=== PATIENT | female | born 1970 | race Caucasian/White ===

== ENCOUNTER 2023-01-07 10:37 | Emergency (ER) | payer MEDICAID, OTHER ==
[~2023-01-07] VITALS: Ht 162.6 cm; Wt 64.0 kg
[2023-01-07 10:38] VITALS: BP 120/90; RESP 20; O2SAT 99
[2023-01-07 11:42] VITALS: PULSE 75
== END 2023-01-07 12:55 | disposition left against medical advice (07) ==
LOC: EDBD 10:37 → ER 10:37
DX: K08.89 Other specified disorders of teeth and supporting structures (principal); M79.632 Pain in left forearm; F19.10 Other psychoactive substance abuse, uncomplicated; Z53.21 Procedure and treatment not carried out due to patient leaving prior to being seen by health care provider
CPT/HCPCS: 93005; 99281; J7030

== ENCOUNTER 2023-10-31 08:48 | Emergency (ER) | payer MEDICAID, OTHER ==
[~2023-10-31] VITALS: Ht 167.6 cm; Wt 68.1 kg
[2023-10-31] MEDS: hydrALAZINE HCL 20 MG/ML VL IV ONE ×2 (10:00→14:26)
[2023-10-31 10:10] VITALS: TEMP 98.2
[2023-10-31 11:16] LABS: Basophils # (auto) 0.1 10 ^3/uL (0-0.2); Basophils % (auto) 0.8 % (0.0-2.0); Eosinophils # (auto) 0.1 10 ^3/uL (0-0.8); Eosinophils % (auto) 1.2 % (0.0-7.0); Hematocrit 43.5 % (36.0-46.0); Hemoglobin 14.4 g/dL (12.2-16.2); Lymphocytes # (auto) 2.2 10 ^3/uL (0.4-5.4); Lymphocytes % (auto) 20.5 % (10.0-50.0); Mean Corpuscular Hemoglobin 30.7 pg (28.0-32.0); Mean Corpuscular Hgb Conc. 33.2 g/dL (32.0-36.0); Mean Corpuscular Volume 92.5 fL (80.0-100.0); Monocytes # (auto) 0.8 10 ^3/uL (0-1.3); Monocytes % (auto) 7.5 % (0.0-12.0); Neutrophils # (auto) 7.5 10 ^3/uL (1.6-8.6); Nucleated Red Blood Cells % 0.1 %; Red Cell Distribution Width 13.6 % (11.8-14.3); White Blood Cell 10.7 10^3/uL (4.4-10.8)
[2023-10-31 11:20] LABS: Alanine Aminotransferase 25 U/L (7-40); Albumin 4.2 g/dL (3.2-4.8); Alkaline Phosphatase 143 U/L (46-116); Anion Gap 3 (5-15); Aspartate Aminotransferase 31 U/L (13-40); BUN/Creatinine Ratio 15.9 (10.0-20.0); Bilirubin, Total 0.4 mg/dL (0.2-1.0); Blood Urea Nitrogen 11 mg/dL (9-23); Calcium 9.3 mg/dL (8.5-10.1); Carbon Dioxide 23 mmol/L (20-30); Chloride 113 mmol/L (98-107); Glucose 90 mg/dL (74-106); Potassium 3.5 mmol/L (3.5-5.1); Sodium 139 mmol/L (136-145)
[2023-10-31 11:21] LABS: Total Protein 6.7 g/dL (5.7-8.2)
[2023-10-31] MEDS: ACETAMINOPHEN 325 MG TAB PO ONE (14:24)
[2023-10-31 15:00] VITALS: BP 128/69; PULSE 70; RESP 16; O2SAT 99
== END 2023-10-31 14:26 | disposition home or self-care (01) ==
LOC: ER 08:48 → EDBD 08:48 → EEVIPCON 08:48 → ER 14:26
DX: R51.9 Headache, unspecified (principal); I10 Essential (primary) hypertension; F15.10 Other stimulant abuse, uncomplicated
CPT/HCPCS: 36415; 70450; 80053; 85025; 93005; 96374; 96376; 99285; J0360

== ENCOUNTER 2024-03-12 15:09 | Emergency (ER) | payer MEDICAID ==
[~2024-03-12] VITALS: Ht 162.6 cm; Wt 72.7 kg
[2024-03-12 15:15] VITALS: O2SAT 98
--- NOTE | 2024-03-12 16:38 | ED.PDOC ---
GI ASSESSMENT HPI Comments 54y F who presents to the ED for chief complaint of abdominal pain. Pt states she has been having RUQ abdominal pain since 1 days prior. Pt states the pain is sharp in nature, constant, non-radiating, rating the pain 8/10, with associated exacerbating factor of movement and no relieving factors. Pt otherwise denies nausea, vomiting, diarrhea, fever, cough, chills, dysuria, chest pain or shortness of breath. Pt otherwise denies any recent sick contacts. Pt denies having taken any medications to help relieve her symptoms. Pt otherwise denies any other symptoms at this time. 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 TRAINER Hx Family History Family History: Unknown Social History Smoker: Non-Smoker Alcohol: Denies ETOH Use Drugs: Methamphetamine, Other Lives In: Home Constitutional: denies: chills, diaphoresis, fatigue, fever, malaise, sweats, weakness, others EENTM: denies: blurred vision, double vision, ear bleeding, ear discharge, ear drainage, ear pain, ear ringing, eye pain, eye redness, hearing loss, mouth pain, mouth swelling, nasal discharge, nose bleeding, nose congestion, nose pain, photophobia, tearing, throat pain, throat swelling, voice changes, others Respiratory: denies: cough, hemoptysis, orthopnea, SOB at rest, shortness of breath, SOB with excertion, stridor, wheezing, others Cardiovascular: denies: chest pain, dizzy spells, diaphoresis, Dyspnea on exertion, edema, irregular heart beat, left arm pain, lightheadedness, palpitations, PND, syncope, others Gastrointestinal: reports: abdominal pain; denies: abdomen distended, blood streaked bowels, constipated, diarrhea, dysphagia, difficulty swallowing, hemate mesis, melena, nausea, poor appetite, poor fluid intake, rectal bleeding, rectal pain, vomiting, others Genitourinary: denies: abnormal vagina bleeding, burning, dyspareunia, dysuria, flank pain, frequency, hematuria, incontinence, pain, , vagina discharge, urgency, others Neurological: denies: dizziness, fainting, headache, left sided numbness, left sided weakness, numbness, paresthesia, pre-existing deficit, right sided numbness, right sided weakness, seizure, speech problems, tingling, tremors, weakness, others Musculoskeletal: denies: back pain, gout, joint pain, joint swelling, muscle pain, muscle stiffness, neck pain, others Integumetry: denies: bruises, change in color, change in hair/nails, dryness, laceration, lesions, lumps, rash, wounds, others Allergic/Immunocompromised: denies: Difficulty Healing, Frequent Infections, Hives, Itching, others Hematologic/Lymphatic: denies: anemia, blood clots, easy bleeding, easy bruising, swollen glands, others Endocrine: denies: excessive hunger, excessive sweating, excessive thirst, excessive urination, flushing, intolerance to cold, intolerance to heat, unexplained weight gain, unexplained weight loss, others Psychiatric: denies: anxiety, bipolar disorder, depression, hopeless, panic disorder, schizophrenia, sleepless, suicidal, others All Other Systems: Reviewed and Negative Physical Exam General Appearance: Mild Distress HEENT: Normal ENT Inspection, Pharynx Normal, TMs Normal Neck: Full Range of Motion, Non-Tender, Normal, Normal Inspection Respiratory: Chest Non-Tender, Lungs Clear, No Accessory Muscle Use, No Respiratory Distress, Normal Breath Sounds Cardiovascular: Other (tachypneic) Breast Exam: Deferred Gastrointestinal: RLQ, Tenderness Genitalia: Deferred Pelvic: Deferred Rectal: Deferred Extremities: No calf tenderness, Normal capillary refill, Normal inspection, Normal range of motion, Non-tender, No pedal edema Musculoskeletal : Apperance: Normal Neurologic: Alert, steam conditioner filling II-XII nml as Tested, No Motor Deficits, Normal Affect, Normal Mood, No Sensory Deficits Cerebellar Function: Normal Reflexes: Normal Skin: Dry, Normal Color, Warm Lymphatic: No Adenopathy Was a procedure done? Was a procedure done?: No GI differential Dx Differential Diagnosis: Esophagitis, Gastritis/PUD, Gastroenteritis, Hernia, Pancreatitis, UTI, Dehydration, Kidney Stone Other Differential Diagnosis drug use X-Ray, Labs, Meds, VS Vital Signs Date Time Temp Pulse Resp B/P (MAP) Pulse Ox O2 Delivery O2 Flow Rate FiO2 03/12/24 17:20 97 03/12/24 16:50 107 18 143/93 03/12/24 15:15 98.0 83 19 160/91 (114) 98 Lab Test 03/12/24 16:25 03/12/24 16:15 Range/Units White Blood Count 9.2 4.4-10.8 10^3/uL Red Blood Count 4.98 4.0-5.20 10^6/uL Hemoglobin 15.5 12.2-16.2 g/dL Hematocrit 46.3 H 36.0-46.0 % Mean Corpuscular Volume 92.9 80.0-100.0 fL Mean Corpuscular Hemoglobin 31.1 28.0-32.0 pg Mean Corpuscular Hemoglobin Concent 33.5 32.0-36.0 g/dL Red Cell Distribution Width 13.2 11.8-14.3 % Platelet Count 286 140-450 10^3/uL Mean Platelet Volume 7.4 6.9-10.8 fL Neutrophils (%) (Auto) 37.0-80.0 % Lymphocytes (%) (Auto) 10.0-50.0 % Monocytes (%) (Auto) 0.0-12.0 % Basophils (%) (Auto) 0.0-2.0 % Neutrophils # (Auto) 1.6-8.6 10 ^3/uL Lymphocytes # (Auto) 0.4-5.4 10 ^3/uL Monocytes # (Auto) 0-1.3 10 ^3/uL Differential Total Cells Counted 100.0 100 Neutrophils % (Manual) 67 37.0-80.0 Band Neutrophils % (Manual) 21 Lymphocytes % (Manual) 8 L 10.0-50.0 Monocytes % (Manual) 3 0-12 Eosinophils % (Manual) 1 0-7 Basophils % (Manual) 0 0.0-2.0 Metamyelocytes % (manual) 0 Myelocytes % (Manual) 0 Promyelocytes % (Manual) 0 Blast Cells % (Manual) 0 Reactive Lymphocytes 0 Platelet Estimate Adequate Red Blood Cell Morphology Normal Sodium Level 137 136-145 mmol/L Potassium Level 4.4 3.5-5.1 mmol/L Chloride Level 105 98-107 mmol/L Carbon Dioxide Level 23 20-31 mmol/L Anion Gap 9 5-15 Blood Urea Nitrogen 20 9-23 mg/dL Creatinine 1.50 H 0.550-1.02 mg/dL Glomerular Filtration Rate Calc 41 >90 mL/min BUN/Creatinine Ratio 13.3 10.0-20.0 Serum Glucose 88 74-106 mg/dL Calcium Level 10.6 H 8.7-10.4 mg/dL Total Bilirubin 0.5 0.2-1.0 mg/dL Aspartate Amino Transferase (AST) 31 13-40 U/L Alanine Aminotransferase (ALT) 20 7-40 U/L Alkaline Phosphatase 131 H 46-116 U/L Troponin I High Sensitivity 6 </=34 ng/L Total Protein 7.4 5.7-8.2 g/dL Albumin 4.5 3.2-4.8 g/dL Lipase 48 12-53 U/L Urine Color Yellow Yellow Urine Clarity Clear Clear Urine pH 5.5 5.0-9.0 Urine Specific [place] 1.040 H 1.001-1.035 Urine Protein Trace H Negative Urine Ketones Trace Negative Urine Blood Negative Negative /uL Urine Nitrite Negative Negative Urine Bilirubin Negative Negative Urine Urobilinogen 2 H Negative mg/dL Urine Leukocyte Esterase 2+ Negative /uL Urine RBC 11 0 - 4 /hpf Urine WBC 25 0 - 5 /hpf Urine Squamous Epithelial Cells Few <5 /hpf Urine Calcium Oxalate Crystals Mod None Seen Urine Bacteria None seen None Seen /hpf Urine Mucus Few None Seen Urine Glucose Normal Normal mg/dL Time of 1ST Reevaluation: 17:00 Reevaluation 1ST: Unchanged Patient Education/Counseling: Diagnosis, Treatment Family Education/Counseling: No Family Present Departure 1 Departure Time of Disposition: 00:43 (Patient presented with abdominal pain that was concerning for possible appendicits, gastritis, cholecystitis, colitis, gastroenteritis, sbo, or orther possible surgical emergency. Data: 1. I ordered and reviewed the result of at least 3 labs including a CBC, BMP, and Urinalysis. 2. I independently interpreted the following tests: EKG wa normal sinus rhythm.Risk:This patient has a high risk of morbidity due to further diagnostic testing or treatment and may suffer from an acute abdominal process disorder. Patient signed out AMA) Impression: Primary Impression: Right upper quadrant pain Disposition: 07 LEFT AGAINST MEDICAL ADVICE Condition: Serious Critical Care Note Critical Care Time?: No Stability Stability form required: No Heart Score Heart Score: Heart Score Response (Comments) Value History N/A 0 EKG N/A 0 Age N/A 0 Risk Factors N/A 0 Troponin N/A 0 Total 0 I personally scribed for MICK BROOKS MD ([facility]) on 03/12/24 at 16:38. Electronically submitted by Nadya Smith ([facility]). MICK BROOKS MD Mar 12, 2024 16:38
[2024-03-12] MEDS: ONDANSETRON HCL 4 MG/2 ML VIAL IV ONE (16:49)
[2024-03-12 16:50] VITALS: BP 143/93; RESP 18
[2024-03-12] MEDS: MORPHINE SULFATE 4 MG/ML SYR/VIAL IV ONE (16:50)
[2024-03-12 16:54] LABS: Hematocrit 46.3 % (36.0-46.0); Hemoglobin 15.5 g/dL (12.2-16.2); Mean Corpuscular Hemoglobin 31.1 pg (28.0-32.0); Mean Corpuscular Hgb Conc. 33.5 g/dL (32.0-36.0); Mean Corpuscular Volume 92.9 fL (80.0-100.0); Platelet Count (auto) 286 10^3/uL (140-450); Red Blood Cells 4.98 10^6/uL (4.0-5.20); Red Cell Distribution Width 13.2 % (11.8-14.3); White Blood Cell 9.2 10^3/uL (4.4-10.8)
[2024-03-12] MEDS: SODIUM CHLORIDE 0.9% 1,000 ML IV ONE (16:56)
[2024-03-12 17:03] LABS: Basophils % (manual) 0 (0.0-2.0); Blast Cells 0; Metamyelocytes % 0; Myelocytes % 0; Promyelocytes % 0; Reactive Lymphocytes 0
[2024-03-12 17:07] LABS: Urine Bacteria None Seen /hpf (None Seen)
[2024-03-12 17:19] LABS: Alanine Aminotransferase 20 U/L (7-40); Albumin 4.5 g/dL (3.2-4.8); Alkaline Phosphatase 131 U/L (46-116); Anion Gap 9 (5-15); Aspartate Aminotransferase 31 U/L (13-40); BUN/Creatinine Ratio 13.3 (10.0-20.0); Bilirubin, Total 0.5 mg/dL (0.2-1.0); Blood Urea Nitrogen 20 mg/dL (9-23); Calcium 10.6 mg/dL (8.7-10.4); Carbon Dioxide 23 mmol/L (20-31); Chloride 105 mmol/L (98-107); Glucose 88 mg/dL (74-106); Potassium 4.4 mmol/L (3.5-5.1); Sodium 137 mmol/L (136-145); Total Protein 7.4 g/dL (5.7-8.2)
[2024-03-12 17:20] VITALS: PULSE 97
[2024-03-12 17:33] LABS: Urine Blood Negative /uL (Negative); Urine Clarity Clear (Clear); Urine Color Yellow (Yellow); Urine Mucus FEW (None Seen); Urine Protein, UAD TRACE (Negative); Urine Urobilinogen 2 mg/dL (Negative); Urine WBC 25 /hpf (0 - 5); Urine pH 5.5 (5.0-9.0)
[2024-03-12 17:35] LABS: Lipase 48 U/L (12-53)
[2024-03-12 17:55] LABS: Band Neutrophils % (manual) 21
[2024-03-12 17:56] LABS: Eosinophils % (manual) 1 (0-7); Lymphocytes % (manual) 8 (10.0-50.0); Monocytes % (manual) 3 (0-12); Platelet Estimate Adequate; RBC Morphology Normal
--- NOTE | 2024-03-13 11:56 | ECG ---
[facility] Test Date: 2024-03-12 Test Time: 17:18:24 Pat Name: ALEXANDER THOMPSON Department: ED Room: Gender: F Parking Officer: LEON : 1970 Requested By: MICK BROOKS Order Number: [id number] Reading MD: Ruiz Pringle Measurements Intervals [place] Rate: 97 P: 87 NH: 116 QRS: 75 QRSD: 97 T: 60 QT: 353 QTc: 449 Interpretive Statements Sinus rhythm Borderline short NH interval Biatrial enlargement Left ventricular hypertrophy Anterior Q waves, possibly due to LVH Baseline wander in lead(s) V4,V5,V6 Electronically Signed On 03-13-2024 17:46:14 PST by Ruiz Pringle Please click the below link to view image of tracing.
== END 2024-03-12 18:06 | disposition left against medical advice (07) ==
LOC: ER 15:09 → EDBD 15:09 → EDUNIT# 15:09 → ER 18:06
DX: R10.11 Right upper quadrant pain (principal); I51.7 Cardiomegaly; F15.10 Other stimulant abuse, uncomplicated; Z87.59 Personal history of other complications of pregnancy, childbirth and the puerperium
CPT/HCPCS: 36415; 80053; 81001; 83690; 84484; 85007; 85027; 93005; 96361; 96374; 96375; 99284; J2270; J2405; J7030

== ENCOUNTER 2024-04-24 08:20 | Emergency (ER) | payer MEDICAID ==
[~2024-04-24] VITALS: Ht 162.6 cm; Wt 65.0 kg
--- NOTE | 2024-04-24 10:43 | ED.PDOC ---
Altered Mental Status HPI Comments 54 y.o female presents to the ED via EMS for an evaluation of ETOH. 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 Patient admits to drinking Vodka and methamphetamine last night, states she lost consciousness and woke up with scabs to the left side of her forehead that are healing with no active bleeding. Patient is a poor historian, presents intoxicated a complains of head pain. Patient eloped from the ED initially, went to the crisis center and was told she needed to be medically cleared in order to be seen there and came back for a full workup. No other symptoms or pain reported. Chief Complaint: ETOH Time Seen by MD: 10:16 Primary Care Provider: UNKNOWN Reviewed Notes: Nurses Notes, Medications, Allergies Allergies: Coded Allergies: NO KNOWN ALLERGIES (Unverified , 01/07/23) Home Meds Active Scripts Diclofenac Potassium (Diclofenac Potassium) 50 Mg Tab, 1 TAB PO TIDP PRN for 5 Days, #15 TAB Prov:ROSSY MCCULLOUGH MD 04/24/24 Ciprofloxacin Hcl (Cipro) 500 Mg Tab, 1 TAB PO BID for 10 Days, #20 TAB Prov:ROSSY MCCULLOUGH MD 04/24/24 Information Source: Patient Mode of Arrival: EMS Timing: Days (1) Duration: Since onset Associated Signs and Symptoms: Other Past Medical History PAST MEDICAL HISTORY: Denies 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 BATTER MIXER Hx Family History Family History: Unknown Social History Smoker: Non-Smoker Alcohol: Heavy Drugs: Methamphetamine, Other Lives In: Home Unable to Obtain due to: Other (patient is intoxicated) Physical Exam General Appearance: No Apparent Distress HEENT: Normal ENT Inspection, PERRL/EOMI, Other (Small frontal scalp hematoma with abrasions) Neck: Full Range of Motion, Non-Tender, Normal, Normal Inspection Respiratory: Chest Non-Tender, Lungs Clear, No Accessory Muscle Use, No Respiratory Distress, Normal Breath Sounds Cardiovascular: No Edema, No JVD, No Murmur, No Gallop, Normal Peripheral Pulses, Regular Rate/Rhythm Breast Exam: Deferred Gastrointestinal: No Organomegaly, Non Tender, No Pulsatile Mass, Normal Bowel Sounds, Soft Genitalia: Deferred Pelvic: Deferred Rectal: Deferred Extremities: No calf tenderness, Normal capillary refill, Normal inspection, Normal range of motion, Non-tender, No pedal edema Neurologic: Alert, alligator shear operator II-XII nml as Tested, Depressed Affect, No Motor Deficits, No Sensory Deficits Cerebellar Function: Normal Reflexes: Normal Skin: Dry, Normal Color, Warm Peripheral Pulses: 1+ carotid (R), 1+ carotid (L) Lymphatic: No Adenopathy Was a procedure done? Was a procedure done?: No Differential Diagnosis (ALOC) Differential Diagnosis: Dehydration, Hypoglycemia, Encephalopathy, Closed Head Injury, Mass Lesion, Drug Overdose, ETOH Intoxication, Renal Failure X-Ray, Labs, Meds, VS Vital Signs Date Time Temp Pulse Resp B/P (MAP) Pulse Ox O2 Delivery O2 Flow Rate FiO2 04/24/24 12:17 77 16 97 Room Air 04/24/24 12:17 98.2 77 16 155/102 (119) 97 98.2 04/24/24 10:35 98.2 77 16 150/100 (117) 96 98.2 04/24/24 08:44 98.9 66 18 164/99 (120) 94 Lab Test 04/24/24 11:30 04/24/24 11:10 Range/Units Urine Color Yellow Yellow Urine Clarity Ex.turbid Clear Urine pH 5.5 5.0-9.0 Urine Specific [place] 1.022 1.001-1.035 Urine Protein 1+ H Negative Urine Ketones Trace Negative Urine Blood 3+ H Negative /uL Urine Nitrite Negative Negative Urine Bilirubin Negative Negative Urine Urobilinogen Normal Negative mg/dL Urine Leukocyte Esterase 2+ Negative /uL Urine RBC 447 0 - 4 /hpf Urine WBC 53 0 - 5 /hpf Urine Squamous Epithelial Cells Few <5 /hpf Urine Bacteria Few H None Seen /hpf Urine Mucus Few None Seen Urine Glucose 1+ H Normal mg/dL Urine Opiates Screen Neg NEGATIVE Urine Fentanyl Screen Neg NEGATIVE Urine Barbiturates Screen Neg NEGATIVE Urine Phencyclidine Screen Pos NEGATIVE Urine Amphetamines Screen Pos NEGATIVE Urine Benzodiazepines Screen Neg NEGATIVE Urine Cocaine Screen Pos NEGATIVE Urine Cannabinoids Screen Neg NEGATIVE White Blood Count 11.0 H 4.4-10.8 10^3/uL Red Blood Count 5.15 4.0-5.20 10^6/uL Hemoglobin 15.3 12.2-16.2 g/dL Hematocrit 47.2 H 36.0-46.0 % Mean Corpuscular Volume 91.7 80.0-100.0 fL Mean Corpuscular Hemoglobin 29.7 28.0-32.0 pg Mean Corpuscular Hemoglobin Concent 32.4 32.0-36.0 g/dL Red Cell Distribution Width 14.9 H 11.8-14.3 % Platelet Count 287 140-450 10^3/uL Mean Platelet Volume 6.9 6.9-10.8 fL Neutrophils (%) (Auto) 70.6 37.0-80.0 % Lymphocytes (%) (Auto) 22.7 10.0-50.0 % Monocytes (%) (Auto) 5.4 0.0-12.0 % Eosinophils (%) (Auto) 0.8 0.0-7.0 % Basophils (%) (Auto) 0.5 0.0-2.0 % Neutrophils # (Auto) 7.8 1.6-8.6 10 ^3/uL Lymphocytes # (Auto) 2.5 0.4-5.4 10 ^3/uL Monocytes # (Auto) 0.6 0-1.3 10 ^3/uL Eosinophils # (Auto) 0.1 0-0.8 10 ^3/uL Basophils # (Auto) 0.1 0-0.2 10 ^3/uL Nucleated Red Blood Cells 0.1 % Sodium Level 138 136-145 mmol/L Potassium Level 4.4 3.5-5.1 mmol/L Chloride Level 103 98-107 mmol/L Carbon Dioxide Level 28 20-31 mmol/L Anion Gap 7 5-15 Blood Urea Nitrogen 22 9-23 mg/dL Creatinine 1.18 H 0.550-1.02 mg/dL Glomerular Filtration Rate Calc 55 >90 mL/min BUN/Creatinine Ratio 18.6 10.0-20.0 Serum Glucose 154 H 74-106 mg/dL Calcium Level 10.5 H 8.7-10.4 mg/dL Magnesium Level 2.2 1.6-2.6 mg/dL Total Bilirubin 0.3 0.2-1.0 mg/dL Aspartate Amino Transferase (AST) 20 13-40 U/L Alanine Aminotransferase (ALT) 12 7-40 U/L Alkaline Phosphatase 136 H 46-116 U/L Total Protein 7.8 5.7-8.2 g/dL Albumin 4.4 3.2-4.8 g/dL Plasma/Serum Blood Alcohol < 3.0 <10 mg/dL Current Medications Medications (Trade) Dose Ordered Sig/Pascual Route Start Time Stop Time Status Last Admin Sodium Chloride 1,000 ml @ 1,000 mls/hr Q1H ONCE IVB 04/24/24 11:00 04/24/24 11:59 DC 04/24/24 12:22 X-Ray, Labs, Meds, VS Comment Course in the emergency department eventful patient came in because of ETOH and behavioral disorder also complaining of a headache she fell last night and hurt her forehead Blood pressure 164/99 CT head shows scalp hematoma on the frontal side CBC 51025 with 70.6% neutrophils normal H&H CMP normal UDS positive for PCP cocaine and amphetamine Urine shows 3+ blood 1+ protein 3+ leukocyte esterase Blood alcohol level negative Magnesium 2.2 GFR at 55 with a blood sugar of 154 Patient will be discharged home to follow up with her PCP Time of 1ST Reevaluation: 10:38 Reevaluation 1ST: Unchanged Time of 2ND Reevaluation: 13:45 Reevaluation 2ND: Improved Consultation: PCP Patient Education/Counseling: Diagnosis, Treatment, Prognosis, Need For Follow Up, Other (patient is intoxicated ) Family Education/Counseling: Diagnosis, Treatment, Prognosis, Need For Follow Up, No Family Present Departure 1 Departure Time of Disposition: 13:49 Impression: Primary Impression: Fall at home Qualified Codes: W19.XXXA - Unspecified fall, initial encounter; Y92.009 - Unspecified place in unspecified non-institutional (private) residence as the place of occurrence of the external cause Additional Impressions: Cocaine abuse Amphetamine abuse PCP abuse Traumatic hematoma of forehead Qualified Codes: S00.83XA - Contusion of other part of head, initial encounter UTI (urinary tract infection) Qualified Codes: N30.01 - Acute cystitis with hematuria Disposition: HOME / SELF CARE / HOMELESS Condition: Fair Additional Instructions: Push fluids and follow up with your PCP Stop using drugs Keep abrasions clean and dry e-Prescriptions Diclofenac Potassium (Diclofenac Potassium) 50 Mg Tab 1 TAB PO TIDP PRN for 5 Days, #15 TAB Prov: ROSSY MCCULLOUGH MD 04/24/24 Ciprofloxacin Hcl (Cipro) 500 Mg Tab 1 TAB PO BID for 10 Days, #20 TAB Prov: ROSSY MCCULLOUGH MD 04/24/24 Discharged With: Self Critical Care Note Critical Care Time?: No Stability Stability form required: No I personally scribed for ROSSY MCCULLOUGH MD ([email or web address]) on 04/24/24 at 10:43. Electronically submitted by Hannah Moragn ([facility]). ROSSY MCCULLOUGH MD Apr 24, 2024 10:43
--- NOTE | 2024-04-24 11:16 | DVH ---
EXAM: CT HEAD WITHOUT CONTRAST INDICATION: ETOH fall forehead contusion TECHNIQUE: CT of the head without intravenous contrast. Radiation Dose Information: CT Dose: CTDI volume is 53.80 mGy. Dose-length product is 843.43 mGy*cm The dose indicators for CT are the volume Computed Tomography (CT) Dose Index (CTDIvol) and the Dose Length Product (DLP), and are measured in units of mGy and mGy-cm, respectively. These indicators are not patient dose, but values generated from the CT scanner acquisition factors. The report includes radiation exposure data for exposures received during this examination. COMPARISON: CT HEAD WITHOUT CONTRAST on DOS: 10/31/23 FINDINGS: There is no evidence of acute intracranial hemorrhage, extra-axial collection, mass effect, midline s hift, herniation or hydrocephalus. The ventricles, sulci and cisterns are age appropriate. The larsen-white differentiation is intact. Patchy periventricular and subcortical white matter hypoattenuation is nonspecific but may be related to small vessel ischemic disease. The visualized paranasal sinuses and mastoid air cells are clear. Tiny left frontal scalp hematoma and soft tissue swelling. No underlying fracture. IMPRESSION: 1. No CT evidence of acute intracranial abnormality. 2. Tiny left frontal scalp hematoma and soft tissue swelling with no underlying fracture appreciated. HS:Y
[2024-04-24 11:47] LABS: Basophils # (auto) 0.1 10 ^3/uL (0-0.2); Basophils % (auto) 0.5 % (0.0-2.0); Eosinophils # (auto) 0.1 10 ^3/uL (0-0.8); Eosinophils % (auto) 0.8 % (0.0-7.0); Hematocrit 47.2 % (36.0-46.0); Hemoglobin 15.3 g/dL (12.2-16.2); Lymphocytes # (auto) 2.5 10 ^3/uL (0.4-5.4); Lymphocytes % (auto) 22.7 % (10.0-50.0); Mean Corpuscular Hemoglobin 29.7 pg (28.0-32.0); Mean Corpuscular Hgb Conc. 32.4 g/dL (32.0-36.0); Mean Corpuscular Volume 91.7 fL (80.0-100.0); Monocytes # (auto) 0.6 10 ^3/uL (0-1.3); Monocytes % (auto) 5.4 % (0.0-12.0); Neutrophils # (auto) 7.8 10 ^3/uL (1.6-8.6); Neutrophils % (auto) 70.6 % (37.0-80.0); Nucleated Red Blood Cells % 0.1 %; Platelet Count (auto) 287 10^3/uL (140-450); Red Blood Cells 5.15 10^6/uL (4.0-5.20); Red Cell Distribution Width 14.9 % (11.8-14.3)
[2024-04-24 11:55] LABS: Alanine Aminotransferase 12 U/L (7-40); Albumin 4.4 g/dL (3.2-4.8); Anion Gap 7 (5-15); Aspartate Aminotransferase 20 U/L (13-40); BUN/Creatinine Ratio 18.6 (10.0-20.0); Blood Urea Nitrogen 22 mg/dL (9-23); Carbon Dioxide 28 mmol/L (20-31); Chloride 103 mmol/L (98-107); Magnesium 2.2 mg/dL (1.6-2.6); Potassium 4.4 mmol/L (3.5-5.1); Sodium 138 mmol/L (136-145)
[2024-04-24 11:56] LABS: Bilirubin, Total 0.3 mg/dL (0.2-1.0); Total Protein 7.8 g/dL (5.7-8.2)
[2024-04-24 12:01] LABS: Alkaline Phosphatase 136 U/L (46-116); Blood Alcohol < 3.0 mg/dL (<10); Calcium 10.5 mg/dL (8.7-10.4); Glucose 154 mg/dL (74-106)
[2024-04-24 12:07] LABS: Cannabinoid Screen, Urine Neg (NEGATIVE); Cocaine Screen, Urine Pos (NEGATIVE)
[2024-04-24 12:17] VITALS: BP 155/102; PULSE 77; RESP 16; TEMP 98.2; O2SAT 97
[2024-04-24 12:17] LABS: Urine Bacteria FEW /hpf (None Seen); Urine Blood 3+ /uL (Negative); Urine Clarity Ex.Turbid (Clear); Urine Mucus FEW (None Seen); Urine Protein, UAD 1+ (Negative); Urine Specific Gravity 1.022 (1.001-1.035); Urine Squamous Epithelial Cell FEW /hpf (<5); Urine Urobilinogen Normal (Negative); Urine WBC 53 /hpf (0 - 5); Urine pH 5.5 (5.0-9.0)
[2024-04-24 12:18] LABS: Urine Color Yellow (Yellow)
[2024-04-24] MEDS: SODIUM CHLORIDE 0.9% 1,000 ML IVB ONE (12:22)
[2024-04-24 12:25] LABS: Amphetamine Screen, Urine Pos (NEGATIVE); Barbiturate Scree,Urine Neg (NEGATIVE); Benzodiazephine Screen, Urine Neg (NEGATIVE); Opiate Scree,Urine Neg (NEGATIVE); Phencyclidine Screen, Urine Pos (NEGATIVE)
[2024-04-24] MEDS ORDERED: CIPR-173 PO (13:52)
[2024-04-24] MEDS ORDERED: DICL50TA2 PO (13:52)
== END 2024-04-24 15:07 | disposition home or self-care (01) ==
LOC: EDUNIT# 08:20 → EDBD 08:20 → ER 08:20
DX: S00.83XA Contusion of other part of head, initial encounter (principal); F14.10 Cocaine abuse, uncomplicated; F15.10 Other stimulant abuse, uncomplicated; F16.10 Hallucinogen abuse, uncomplicated; N30.01 Acute cystitis with hematuria; Z79.899 Other long term (current) drug therapy; X58.XXXA Exposure to other specified factors, initial encounter; Y93.89 Activity, other specified; Y92.89 Other specified places as the place of occurrence of the external cause; Y99.8 Other external cause status
CPT/HCPCS: 36415; 70450; 80053; 80307; 80320; 81001; 83735; 85025; 96360; 99284; J7030

== ENCOUNTER 2024-08-26 12:19 | Emergency (ER) | payer MEDICAID ==
[~2024-08-26] VITALS: Ht 162.6 cm; Wt 65.4 kg
[~2024-08-26 12:19] MED LIST: CIPR-173 PO; DICL50TA2 PO
[2024-08-26 13:00] VITALS: PULSE 62; RESP 16; O2SAT 95
--- NOTE | 2024-08-26 14:18 | ED.PDOC ---
Psychiatric HPI Comments 54 year old female presents to the ED with chief complaint of SI. Patient reports that she had went to the crisis center earlier today for depression medication and also that she was experiencing SI, but was advised to come to the ED for further evaluation and treatment. Patient denies any HI, VH, AH, or any other symptoms. Chief Complaint: Medical Clearance Time Seen by MD: 14:09 Primary Care Provider: UNKNOWN Reviewed Notes: Nurses Notes, Medications, Allergies Information Source: Patient Mode of Arrival: Ambulatory Severity: Able to Care for Self, Able to Control Self Severity of Pain: None Severity of Mental Status: Moderate Severity of Symptoms: Moderate Timing: Hours Duration: Since onset Prehospital treatment: None Presents with: Suicidal Ideation Circumstance: Medical Clearance Current substance abuse: None Stressors: None History of: Depression Past Medical History PAST MEDICAL HISTORY: Depression Surgical History: Denies all 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 History: Denies all [employer]OR [employer] Hx Family History Family History: Reviewed,noncontributory to illness, Unknown Social History Smoker: Non-Smoker Alcohol: Heavy Drugs: Methamphetamine, Other Lives In: Home Constitutional: denies: chills, diaphoresis, fatigue, fever, malaise, sweats, weakness, others EENTM: denies: blurred vision, double vision, ear bleeding, ear discharge, ear drainage, ear pain, ear ringing, eye pain, eye redness, hearing loss, mouth pain, mouth swelling, nasal discharge, nose bleeding, nose congestion, nose pain, photophobia, tearing, throat pain, throat swelling, voice changes, others Respiratory: denies: cough, hemoptysis, orthopnea, SOB at rest, shortness of breath, SOB with excertion, stridor, wheezing, others Cardiovascular: denies: chest pain, dizzy spells, diaphoresis, Dyspnea on exertion, edema, irregular heart beat, left arm pain, lightheadedness, palpitations, PND, syncope, others Gastrointestinal: denies: abdomen distended, abdominal pain, blood streaked bowels, constipated, diarrhea, dysphagia, difficulty swallowing, hematemesis, melena, nausea, poor appetite, poor fluid intake, rectal bleeding, rectal pain, vomiting, others Genitourinary: denies: abnormal vagina bleeding, burning, dyspareunia, dysuria, flank pain, frequency, hematuria, incontinence, pain, , vagina discharge, urgency, others Neurological: denies: dizziness, fainting, headache, left sided numbness, left sided weakness, numbness, paresthesia, pre-existing deficit, right sided numbness, right sided weakness, seizure, speech problems, tingling, tremors, weakness, others Musculoskeletal: denies: back pain, gout, joint pain, joint swelling, muscle pain, muscle stiffness, neck pain, others Integumetry: denies: bruises, change in color, change in hair/nails, dryness, laceration, lesions, lumps, rash, wounds, others Allergic/Immunocompromised: denies: Difficulty Healing, Frequent Infections, Hives, Itching, others Hematologic/Lymphatic: denies: anemia, blood clots, easy bleeding, easy bruising, swollen glands, others Endocrine: denies: excessive hunger, excessive sweating, excessive thirst, excessive urination, flushing, intolerance to cold, intolerance to heat, unexplained weight gain, unexplained weight loss, others Psychiatric: reports: suicidal; denies: anxiety, bipolar disorder, depression, hopeless, panic disorder, schizophrenia, sleepless, others All Other Systems: Reviewed and Negative Physical Exam General Appearance: No Apparent Distress, Normal HEENT: Normal ENT Inspection, Pharynx Normal, TMs Normal Neck: Full Range of Motion, Non-Tender, Normal, Normal Inspection Respiratory: Chest Non-Tender, Lungs Clear, No Accessory Muscle Use, No Respiratory Distress, Normal Breath Sounds Cardiovascular: No Edema, No JVD, No Murmur, No Gallop, Normal Peripheral Pulses, Regular Rate/Rhythm Breast Exam: Deferred Gastrointestinal: No Organomegaly, Non Tender, No Pulsatile Mass, Normal Bowel Sounds, Soft Genitalia: Deferred Pelvic: Deferred Rectal: Deferred Extremities: No calf tenderness, Normal capillary refill, Normal inspection, Normal range of motion, Non-tender, No pedal edema Musculoskeletal : Apperance: Normal Neurologic: Alert, 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 Was a procedure done?: No Psych Differential Dx Psych. Differential Dx: Suicidal X-Ray, Labs, Meds, VS Vital Signs Date Time Temp Pulse Resp B/P (MAP) Pulse Ox O2 Delivery O2 Flow Rate FiO2 08/27/24 06:15 56 12 153/88 (109) 96 08/27/24 04:27 12 119/88 (98) 94 08/27/24 01:45 61 12 132/84 (100) 97 08/26/24 23:00 85 14 117/69 (85) 97 08/26/24 21:00 80 13 124/78 (93) 97 08/26/24 19:52 97.9 14 163/89 (113) 96 97.9 08/26/24 19:50 12 96 Room Air* 0 21 08/26/24 18:00 68 12 156/88 (110) 94 08/26/24 18:00 68 12 94 Room Air* 0 21 08/26/24 13:00 62 16 95 Room Air* 0 21 08/26/24 12:29 99.1 98 16 193/110 (137) 100 99.1 Lab Test 08/26/24 16:19 08/26/24 14:09 Range/Units Urine Color Light-yellow Yellow Urine Clarity Clear Clear Urine pH 6.0 5.0-9.0 Urine Specific [place] 1.026 1.001-1.035 Urine Protein Trace H Negative Urine Ketones Negative Negative Urine Blood Trace H Negative /uL Urine Nitrite Negative Negative Urine Bilirubin Negative Negative Urine Urobilinogen Normal Negative mg/dL Urine Leukocyte Esterase 3+ Negative /uL Urine RBC 16 0 - 4 /hpf Urine Microscopic WBC 24 H 0-5 /HPF Urine Squamous Epithelial Cells Few <5 /hpf Urine Bacteria Few H None Seen /hpf Urine Glucose Normal Normal mg/dL Urine Opiates Screen Neg NEGATIVE Urine Fentanyl Screen Neg NEGATIVE Urine Barbiturates Screen Neg NEGATIVE Urine Phencyclidine Screen Pos NEGATIVE Urine Amphetamines Screen Pos NEGATIVE Urine Benzodiazepines Screen Neg NEGATIVE Urine Cocaine Screen Neg NEGATIVE Urine Cannabinoids Screen Neg NEGATIVE White Blood Count 13.8 H 4.4-10.8 10^3/uL Red Blood Count 5.26 H 4.0-5.20 10^6/uL Hemoglobin 15.8 12.2-16.2 g/dL Hematocrit 46.9 H 36.0-46.0 % Mean Corpuscular Volume 89.1 80.0-100.0 fL Mean Corpuscular Hemoglobin 30.1 28.0-32.0 pg Mean Corpuscular Hemoglobin Concent 33.7 32.0-36.0 g/dL Red Cell Distribution Width 13.7 11.8-14.3 % Platelet Count 303 140-450 10^3/uL Mean Platelet Volume 7.3 6.9-10.8 fL Neutrophils (%) (Auto) 75.7 37.0-80.0 % Lymphocytes (%) (Auto) 18.9 10.0-50.0 % Monocytes (%) (Auto) 3.6 0.0-12.0 % Eosinophils (%) (Auto) 0.9 0.0-7.0 % Basophils (%) (Auto) 0.9 0.0-2.0 % Neutrophils # (Auto) 10.5 H 1.6-8.6 10 ^3/uL Lymphocytes # (Auto) 2.6 0.4-5.4 10 ^3/uL Monocytes # (Auto) 0.5 0-1.3 10 ^3/uL Eosinophils # (Auto) 0.1 0-0.8 10 ^3/uL Basophils # (Auto) 0.1 0-0.2 10 ^3/uL Nucleated Red Blood Cells 0.1 % Sodium Level 147 H 136-145 mmol/L Potassium Level 4.1 3.5-5.1 mmol/L Chloride Level 114 H 98-107 mmol/L Carbon Dioxide Level 26 20-31 mmol/L Anion Gap 7 5-15 Blood Urea Nitrogen 25 H 9-23 mg/dL Creatinine 1.13 H 0.550-1.02 mg/dL Glomerular Filtration Rate Calc 58 >90 mL/min BUN/Creatinine Ratio 22.1 H 10.0-20.0 Serum Glucose 94 74-106 mg/dL Calcium Level 9.5 8.7-10.4 mg/dL Salicylates Level < 3.0 -30 mg/dL Acetaminophen Level < 2.0 L 10.0-20.0 UG/ML Plasma/Serum Blood Alcohol < 3.0 <10 mg/dL Current Medications Medications (Trade) Dose Ordered Sig/Pascual Route Start Time Stop Time Status Last Admin Haloperidol Lactate (Haldol) 10 mg ONCE ONCE IM 08/26/24 15:30 08/26/24 15:31 DC 08/26/24 16:34 Time of 1ST Reevaluation: 15:09 Reevaluation 1ST: Unchanged Patient Education/Counseling: Diagnosis, Treatment Family Education/Counseling: No Family Present Additional Information The following tests were ordered, and results were reviewed by me: UA, Salicylate, CBC, Acetaminophen, UDS, BMP, ETOH Additional Information was gathered from interviewing the following independent historians: None I reviewed and agreed with the following test results read by other providers: None I discussed treatment and results with medical personnel and: patient Comprehensive systems review obtained and negative except for what is stated in the HPI. Departure 1 Departure Time of Disposition: 11:02 (Patient was cleared for discharge by psychiatry. We will discharge patient home with Zoloft and outpatient follow up) Impression: Primary Impression: Depression Qualified Codes: F32.A - Depression, unspecified Disposition: HOME / SELF CARE / HOMELESS Condition: Stable Additional Instructions: You were prescribed Zoloft please take as directed. It is important to follow up with the regular doctor. e-Prescriptions Sertraline Hcl (Zoloft) 50 Mg Tab 1 TAB PO DAILY for 30 Days, #30 TAB 2 Refills Prov: MICK BROOKS MD 08/27/24 Critical Care Note Critical Care Time?: No Stability Stability form required: No Heart Score Heart Score: Heart Score Response (Comments) Value History N/A 0 EKG N/A 0 Age N/A 0 Risk Factors N/A 0 Troponin N/A 0 Total 0 I personally scribed for MICK BROOKS MD ([email or web address]) on 08/26/24 at 14:18. Electronically submitted by Pop Bridges ([email or web address]). MICK BROOKS MD August 26, 2024 14:18
[2024-08-26 14:36] LABS: Basophils # (auto) 0.1 10 ^3/uL (0-0.2); Basophils % (auto) 0.9 % (0.0-2.0); Eosinophils # (auto) 0.1 10 ^3/uL (0-0.8); Eosinophils % (auto) 0.9 % (0.0-7.0); Hematocrit 46.9 % (36.0-46.0); Hemoglobin 15.8 g/dL (12.2-16.2); Lymphocytes # (auto) 2.6 10 ^3/uL (0.4-5.4); Lymphocytes % (auto) 18.9 % (10.0-50.0); Mean Corpuscular Hemoglobin 30.1 pg (28.0-32.0); Mean Corpuscular Hgb Conc. 33.7 g/dL (32.0-36.0); Mean Corpuscular Volume 89.1 fL (80.0-100.0); Monocytes # (auto) 0.5 10 ^3/uL (0-1.3); Monocytes % (auto) 3.6 % (0.0-12.0); Neutrophils # (auto) 10.5 10 ^3/uL (1.6-8.6); Neutrophils % (auto) 75.7 % (37.0-80.0); Nucleated Red Blood Cells % 0.1 %; Platelet Count (auto) 303 10^3/uL (140-450); Red Blood Cells 5.26 10^6/uL (4.0-5.20); Red Cell Distribution Width 13.7 % (11.8-14.3); White Blood Cell 13.8 10^3/uL (4.4-10.8)
[2024-08-26 14:48] LABS: Anion Gap 7 (5-15); Carbon Dioxide 26 mmol/L (20-31); Potassium 4.1 mmol/L (3.5-5.1)
[2024-08-26 14:49] LABS: Calcium 9.5 mg/dL (8.7-10.4)
[2024-08-26 14:54] LABS: BUN/Creatinine Ratio 22.1 (10.0-20.0); Glucose 94 mg/dL (74-106)
[2024-08-26 14:56] LABS: Blood Urea Nitrogen 25 mg/dL (9-23); Chloride 114 mmol/L (98-107); Sodium 147 mmol/L (136-145)
[2024-08-26 15:14] LABS: Blood Alcohol < 3.0 mg/dL (<10)
[2024-08-26 15:15] LABS: Acetaminophen < 2.0 UG/ML (10.0-20.0); Salicylate < 3.0 mg/dL (-30)
[2024-08-26 16:29] LABS: Urine Bacteria FEW /hpf (None Seen); Urine Blood TRACE /uL (Negative); Urine Clarity Clear (Clear); Urine Color Light-Yellow (Yellow); Urine Protein, UAD TRACE (Negative); Urine Specific Gravity 1.026 (1.001-1.035); Urine Squamous Epithelial Cell FEW /hpf (<5); Urine Urobilinogen Normal (Negative); Urine WBC 24 /HPF (0-5)
[2024-08-26] MEDS: HALOPERIDOL LACTATE 5 MG/ML INJ VIAL IM ONE (16:34)
[2024-08-26 16:39] LABS: Amphetamine Screen, Urine Pos (NEGATIVE); Barbiturate Scree,Urine Neg (NEGATIVE); Benzodiazephine Screen, Urine Neg (NEGATIVE); Cannabinoid Screen, Urine Neg (NEGATIVE); Cocaine Screen, Urine Neg (NEGATIVE); Opiate Scree,Urine Neg (NEGATIVE); Phencyclidine Screen, Urine Pos (NEGATIVE)
[2024-08-26 18:00] VITALS: PULSE 68; RESP 12; O2SAT 94
[2024-08-26 19:50] VITALS: RESP 12; O2SAT 96
--- NOTE | 2024-08-27 10:11 | DVHINCON2 ---
Date of Service if different f: August 27, 2024 Consultation ([place]) Labs Laboratory Tests Test 08/26/24 14:09 08/26/24 16:19 White Blood Count 13.8 10^3/uL (4.4-10.8) Red Blood Count 5.26 10^6/uL (4.0-5.20) Hemoglobin 15.8 g/dL (12.2-16.2) Hematocrit 46.9 % (36.0-46.0) Mean Corpuscular Volume 89.1 fL (80.0-100.0) Mean Corpuscular Hemoglobin 30.1 pg (28.0-32.0) Mean Corpuscular Hemoglobin Concent 33.7 g/dL (32.0-36.0) Red Cell Distribution Width 13.7 % (11.8-14.3) Platelet Count 303 10^3/uL (140-450) Mean Platelet Volume 7.3 fL (6.9-10.8) Neutrophils (%) (Auto) 75.7 % (37.0-80.0) Lymphocytes (%) (Auto) 18.9 % (10.0-50.0) Monocytes (%) (Auto) 3.6 % (0.0-12.0) Eosinophils (%) (Auto) 0.9 % (0.0-7.0) Basophils (%) (Auto) 0.9 % (0.0-2.0) Neutrophils # (Auto) 10.5 10 ^3/uL (1.6-8.6) Lymphocytes # (Auto) 2.6 10 ^3/uL (0.4-5.4) Monocytes # (Auto) 0.5 10 ^3/uL (0-1.3) Eosinophils # (Auto) 0.1 10 ^3/uL (0-0.8) Basophils # (Auto) 0.1 10 ^3/uL (0-0.2) Nucleated Red Blood Cells 0.1 % Sodium Level 147 mmol/L (136-145) Potassium Level 4.1 mmol/L (3.5-5.1) Chloride Level 114 mmol/L (98-107) Carbon Dioxide Level 26 mmol/L (20-31) Anion Gap 7 (5-15) Blood Urea Nitrogen 25 mg/dL (9-23) Creatinine 1.13 mg/dL (0.550-1.02) Glomerular Filtration Rate Calc 58 mL/min (>90) BUN/Creatinine Ratio 22.1 (10.0-20.0) Serum Glucose 94 mg/dL (74-106) Calcium Level 9.5 mg/dL (8.7-10.4) Salicylates Level < 3.0 mg/dL (-30) Acetaminophen Level < 2.0 UG/ML (10.0-20.0) Plasma/Serum Blood Alcohol < 3.0 mg/dL (<10) Urine Color Light-yellow (Yellow) Urine Clarity Clear (Clear) Urine pH 6.0 (5.0-9.0) Urine Specific [place] 1.026 (1.001-1.035) Urine Protein Trace (Negative) Urine Ketones Negative (Negative) Urine Blood Trace /uL (Negative) Urine Nitrite Negative (Negative) Urine Bilirubin Negative (Negative) Urine Urobilinogen Normal mg/dL (Negative) Urine Leukocyte Esterase 3+ /uL (Negative) Urine RBC 16 /hpf (0 - 4) Urine Microscopic WBC 24 /HPF (0-5) Urine Squamous Epithelial Cells Few /hpf (<5) Urine Bacteria Few /hpf (None Seen) Urine Glucose Normal mg/dL (Normal) Urine Opiates Screen Neg (NEGATIVE) Urine Fentanyl Screen Neg (NEGATIVE) Urine Barbiturates Screen Neg (NEGATIVE) Urine Phencyclidine Screen Pos (NEGATIVE) Urine Amphetamines Screen Pos (NEGATIVE) Urine Benzodiazepines Screen Neg (NEGATIVE) Urine Cocaine Screen Neg (NEGATIVE) Urine Cannabinoids Screen Neg (NEGATIVE) Appetite: Fair Appearance: Older than stated age, Disheveled Psychomotor activity: WNL Behavioral: Cooperative Eye contact: Appropriate Affect: Appropriate, Mood Congruent Mood: Other Thought processes: Linear/Goal-directed Thought content: WNL Suicidal ideations: Absent Homicidal ideations: Absent Orientation: Person, Place, Time, Situation Memory intact: Recent Intellect: Average Abstractability: WNL Concentration: Adequate Attention: Adequate Judgement: WNL Insight: Limited Vitals Vital Signs Date Time Temp Pulse Resp B/P (MAP) Pulse Ox O2 Delivery O2 Flow Rate FiO2 08/27/24 06:15 56 12 153/88 (109) 96 08/26/24 19:52 97.9 97.9 08/26/24 19:50 Room Air* 0 21 Medication adjusted: Yes Diagnosis: unspecified mood disorder, polysubstance use disorder Plan : Patient presently denies Si/Hi with plan. She is requesting resources for outpatient resources for therapy and assistance with housing Patient may discharge after medical clearance Recommend Zoloft 50mg po daily for depression History of Present Illness Reason for Consult : suicidal ideation HPI : This is 54-year-old female with hx of depression and polysubstance use, she presents here voluntary reporting suicidal ideation Patient is evaluated via telepsychiatry, she reports having " bad depression" and had suicidal thoughts for a few days, no known triggers. She does report her housing status does make her feel depressed often, but she currently denies Si/hi with plan or intent. She denies auditory/visual hallucinations or paranoid thoughts. She does not wish to go to psychiatric hospital and wants discharge. She reports sleep and appetite are intact. She denies prior episodes of chapito or hypomania. Past Psychiatric History : She reports prior psych hosp one year ago. She reports diagnosis of depression only. She was prescribed Depakote in the past but made her feel suicidal. She denies current outpatient mental health follow up. She denies hx of suicide attempts Past Medical History : She denies Social History : She is homeless x1 month prior to this living with family. She is unemployed. She reports use of meth and PCP are rare. She says only tried it once. She denies alcohol and other substance use. She denies any known family history JEFFERSON MALDONADO DNP August 27, 2024 10:11
[2024-08-27] MEDS ORDERED: SERT50TA PO (11:03)
[2024-08-27 11:15] VITALS: BP 132/80; PULSE 70; RESP 15; TEMP 97.7; O2SAT 97
== END 2024-08-27 11:08 | disposition home or self-care (01) ==
LOC: ER 12:19
DX: F32.A Depression, unspecified (principal); F15.90 Other stimulant use, unspecified, uncomplicated; Z59.00 Homelessness unspecified
CPT/HCPCS: 36415; 80048; 80307; 80320; 80329; 81001; 85025; 96372; 99285; J1630